=== PATIENT | male | born 1965 | race Caucasian/White ===

== ENCOUNTER 2017-11-13 10:26 | Day surgery (SDC) | payer OTHER ==
[2017-11-11 10:05] VITALS: BMI 25.9
[2017-11-13] MEDS ORDERED: LACTATED RINGERS 1,000 ML IV ONE (11:33)
[2017-11-13 11:34] VITALS: RESP 16; TEMP 98.3
[2017-11-13] MEDS ORDERED: PROPOFOL 10 MG/ML 20 ML VIAL IV ONE (12:13)
--- NOTE | 2017-11-13 12:44 | P.PCN ---
Date of Procedure: 11/13/17 Procedure(s) Performed: Procedure: Total colonoscopy Preoperative diagnosis: Screening for neoplasia. Postoperative diagnosis: Exam within normal limits. Preparation: HalfLytely prep. Sedation: Was provided by anesthesia. Brief clinical history: The patient is a 51-year-old male who is scheduled for this evaluation for screening for neoplasia age being his risk factor. There is no family history of colon cancer. His mother had polyps. The patient has no change in his bowels bleeding or anemia. This would be his first colonoscopy. Procedure: With the patient on his left lateral decubitus position and after informed consent and adequate sedation, the perianal area was inspected and it did not show any fissures or fistulas. There were no masses felt on digital rectal examination. The Olympus CFQ 160L video colonoscope was then inserted in the rectum in the usual fashion and advanced to the cecum. The mucosa appeared healthy. There were no polyps, tumors or obvious diverticular disease. I retroflexed the endoscope in the rectum before the endoscope was withdrawn. The patient tolerated the procedure well. Plan: The patient was reassured. He will follow up with you as planned and I recommended repeat exam in 10 years for screening for colon cancer.
[2017-11-13 12:54] VITALS: BP 132/77; PULSE 80
== END 2017-11-13 13:14 | disposition home or self-care (01) ==
LOC: ORWHC2ENDO 10:26
DX: Z12.11 Encounter for screening for malignant neoplasm of colon (principal); Z83.71 Family history of colonic polyps; I10 Essential (primary) hypertension; F17.210 Nicotine dependence, cigarettes, uncomplicated; Z79.899 Other long term (current) drug therapy
CPT/HCPCS: J2704; G0105

== ENCOUNTER → 2018-04-21 | Outpatient (CLI) | payer OTHER ==
--- NOTE | 2018-04-22 07:55 | CT ---
EXAMINATION TYPE: CT sinus wo con DATE OF EXAM: 04/21/2018 COMPARISON: NONE HISTORY: Chronic recurrent sinusitis per order. Congestion for weeks per patient. CT DLP: 474 mGycm. Automated Exposure Control for Dose Reduction was Utilized. TECHNIQUE: CT scan of the sinuses is performed without contrast, axial images are obtained, coronal r eformatted images are also reviewed. FINDINGS: Mild mucosal thickening is seen anterior inferior aspect of left maxillary sinus. There is focal mild to moderate mucosal thickening anteriorly in both sphenoid sinuses. Mild mucosal thickenin g is seen in the ethmoid sinuses bilaterally is prominent anteriorly. There is hypoplastic or nonform ed right frontal sinus. Small caliber left frontal sinus is clear. No suspicious opacification or air -fluid levels is present. The ostiomeatal complex is blocked on the left and narrowed on the right by antral mucosal thickening. Nasal septum is slightly deviated to right of midline. Visualized portion of mastoid air cells show no abnormal opacification. The globes are intact bilate rally. IMPRESSION: Chronic paranasal sinus disease as detailed above. No acute sinusitis noted currently.
== END | disposition home or self-care (01) ==
LOC: RADCTMAIN 16:06
PROVIDERS: ATTEND Family Medicine
DX: J32.9 Chronic sinusitis, unspecified (principal)
CPT/HCPCS: 70486

== ENCOUNTER 2018-09-07 06:43 | Emergency (ER) | payer OTHER ==
[2018-09-07 06:55] VITALS: BP 156/90; PULSE 117; RESP 22; TEMP 98.1
[2018-09-07] MEDS ORDERED: SODIUM CHLORIDE 0.9% 1,000 ML IV STA (07:10)
--- NOTE | 2018-09-07 07:12 | ED ---
Abdominal Pain HPI - General Chief Complaint: Abdominal Pain Stated Complaint: Kidney Infection Time Seen by Provider: 09/07/18 06:59 Source: patient, RN notes reviewed Mode of arrival: ambulatory Limitations: no limitations - History of Present Illness Initial Comments: 52-year-old male presents emergency Department chief complaint of right-sided abdominal pain, right flank pain. Patient just started on has progressively worsened. Patient believes is related to a kidney infection. Patient states he was taken some old penicillin because he thought this was an infection. Patient denies any fevers or chills patient had slight nausea no vomiting no diarrhea no constipation. Denies any chest pain or shortness of breath. Patient states nothing makes the pain feel better or worse. Patient has NO KNOWN DRUG ALLERGIES. Patient denies any prior abdominal surgeries or history of diverticulitis. - Related Data Home Medications Medication Instructions Recorded Confirmed No Known Home Medications 09/07/18 09/07/18 Allergies Allergy/AdvReac Type Severity Reaction Status Date / Time No Known Allergies Allergy Verified 09/07/18 07:11 Review of Systems ROS Statement: Those systems with pertinent positive or pertinent negative responses have been documented in the HPI. ROS Other: All systems not noted in ROS Statement are negative. Past Medical History Past Medical History: Hypertension Additional Past Medical History / Comment(s): back pain History of Any Multi-Drug Resistant Organisms: None Reported Past Surgical History: No Surgical Hx Reported Past Anesthesia/Blood Transfusion Reactions: No Reported Reaction Past Psychological History: No Psychological Hx Reported Smoking Status: Current every day smoker Past Alcohol Use History: None Reported, Rare Past Drug Use History: None Reported - Past Family History Mother Family Medical History: No Reported History General Exam Limitations: no limitations General appearance: alert, in no apparent distress Head exam: Present: atraumatic, normocephalic, normal inspection Neck exam: Present: normal inspection. Absent: tenderness, meningismus, lymphadenopathy Respiratory exam: Present: normal lung sounds bilaterally. Absent: respiratory distress, wheezes, rales, rhonchi, stridor Cardiovascular Exam: Present: normal rhythm, tachycardia (Patient is tachycardic but very anxious), normal heart sounds. Absent: systolic murmur, diastolic murmur, rubs, gallop, clicks GI/Abdominal exam: Present: soft, tenderness (Mild to moderate right-sided), n ormal bowel sounds. Absent: distended, guarding, rebound, rigid Back exam: Present: CVA tenderness (R). Absent: CVA tenderness (L) Neurological exam: Present: alert, oriented X3, CN II-XII intact Skin exam: Present: warm, dry, intact, normal color. Absent: rash Course Vital Signs 09/07/18 06:53 Temperature 98.1 F Pulse Rate 117 H Respiratory 22 Rate Blood Pressure 156/90 O2 Sat by Pulse 99 Oximetry Medical Decision Making - Medical Decision Making 52-year-old male presents emergency department for chief complaint abdominal pain. Patient felt that he had a kidney infection. Patient did have lab oratory, CT and urinalysis. Urinalysis and labs are unremarkable. CT shows evidence of stool burden and some chronic inflammation related to colitis. I do not feel this is a bacterial infection nature. Patient does have prior colonoscopy which was negative for acute processes. Patient will be discharged to follow-up with GI return parameters were discussed. - Lab Data Result diagrams: 09/07/18 07:26 09/07/18 07:26 Lab Results 09/07/18 09/07/18 09/07/18 Range/Units 07:26 07:26 07:26 WBC 5.8 (3.8-10.6) k/uL RBC 5.12 (4.30-5.90) m/uL Hgb 16.3 (13.0-17.5) gm/dL Hct 47.9 (39.0-53.0) % MCV 93.5 (80.0-100.0) fL MCH 31.8 (25.0-35.0) pg MCHC 34.1 (31.0-37.0) g/dL RDW 14.5 (11.5-15.5) % Plt Count 179 (150-450) k/uL Neutrophils % 71 % Lymphocytes % 16 % Monocytes % 10 % Eosinophils % 1 % Basophils % 1 % Neutrophils # 4.1 (1.3-7.7) k/uL Lymphocytes # 0.9 L (1.0-4.8) k/uL Monocytes # 0.6 (0-1.0) k/uL Eosinophils # 0.1 (0-0.7) k/uL Basophils # 0.0 (0-0.2) k/uL Sodium 141 (137-145) mmol/L Potassium 3.7 (3.5-5.1) mmol/L Chloride 103 (98-107) mmol/L Carbon Dioxide 26 (22-30) mmol/L Anion Gap 12 mmol/L BUN 14 (9-20) mg/dL Creatinine 0.82 (0.66-1.25) mg/dL Est GFR (CKD-EPI)AfAm >90 (>60 ml/min/1.73 sqM) Est GFR (CKD-EPI)NonAf >90 (>60 ml/min/1.73 sqM) Glucose 102 H (74-99) mg/dL Plasma Lactic Acid Yg 1.6 (0.7-2.0) mmol/L Calcium 9.1 (8.4-10.2) mg/dL Total Bilirubin 0.5 (0.2-1.3) mg/dL AST 23 (17-59) U/L ALT 24 (21-72) U/L Alkaline Phosphatase 52 (38-126) U/L Total Protein 7.2 (6.3-8.2) g/dL Albumin 4.2 (3.5-5.0) g/dL Lipase 66 (23-300) U/L Urine Color Urine Appearance (Clear) Urine pH (5.0-8.0) Ur Specific Sterling (1.001-1.035) Urine Protein (Negative) Urine Glucose (UA) (Negative) Urine Ketones (Negative) Urine Blood (Negative) Urine Nitrite (Negative) Urine Bilirubin (Negative) Urine Urobilinogen (<2.0) mg/dL Ur Leukocyte Esterase (Negative) 09/07/18 Range/Units 07:26 WBC (3.8-10.6) k/uL RBC (4.30-5.90) m/uL Hgb (13.0-17.5) gm/dL Hct (39.0-53.0) % MCV (80.0-100.0) fL MCH (25.0-35.0) pg MCHC (31.0-37.0) g/dL RDW (11.5-15.5) % Plt Count (150-450) k/uL Neutrophils % % Lymphocytes % % Monocytes % % Eosinophils % % Basophils % % Neutrophils # (1.3-7.7) k/uL Lymphocytes # (1.0-4.8) k/uL Monocytes # (0-1.0) k/uL Eosinophils # (0-0.7) k/uL Basophils # (0-0.2) k/uL Sodium (137-145) mmol/L Potassium (3.5-5.1) mmol/L Chloride (98-107) mmol/L Carbon Dioxide (22-30) mmol/L Anion Gap mmol/L BUN (9-20) mg/dL Creatinine (0.66-1.25) mg/dL Est GFR (CKD-EPI)AfAm (>60 ml/min/1.73 sqM) Est GFR (CKD-EPI)NonAf (>60 ml/min/1.73 sqM) Glucose (74-99) mg/dL Plasma Lactic Acid Yg (0.7-2.0) mmol/L Calcium (8.4-10.2) mg/dL Total Bilirubin (0.2-1.3) mg/dL AST (17-59) U/L ALT (21-72) U/L Alkaline Phosphatase (38-126) U/L Total Protein (6.3-8.2) g/dL Albumin (3.5-5.0) g/dL Lipase (23-300) U/L Urine Color Light Yellow Urine Appearance Clear (Clear) Urine pH 6.0 (5.0-8.0) Ur Specific Sterling 1.004 (1.001-1.035) Urine Protein Negative (Negative) Urine Glucose (UA) Negative (Negative) Urine Ketones Negative (Negative) Urine Blood Negative (Negative) Urine Nitrite Negative (Negative) Urine Bilirubin Negative (Negative) Urine Urobilinogen <2.0 (<2.0) mg/dL Ur Leukocyte Esterase Negative (Negative) Disposition Clinical Impression: Colitis Disposition: HOME SELF-CARE Condition: Stable Instructions (If sedation given, give patient instructions): Colitis (ED) Additional Instructions: Please return to the Emergency Department if symptoms worsen or any other concerns. Is patient prescribed a controlled substance at d/c from ED?: No Referrals: Ophelia Neff MD [Primary Care Provider] - 1-2 days Shaheen Crane MD [STAFF PHYSICIAN] - 1-2 days Time of Disposition: 10:21
[2018-09-07 07:44] LABS: Appearance,Urine Clear (Clear); Basophils % (A) 1 %; Bilirubin,Urine Negative (Negative); Blood,Urine Negative (Negative); Color,Urine Light Yellow; Eosinophils # (A) 0.1 k/uL (0-0.7); Eosinophils % (A) 1 %; Glucose,Urine (UA) Negative (Negative); HCT 47.9 % (39.0-53.0); HGB 16.3 gm/dL (13.0-17.5); Ketones,Urine Negative (Negative); Leukocyte Esterase,Urine Negative (Negative); Lymphocytes # (A) 0.9 k/uL (1.0-4.8); Lymphocytes % (A) 16 %; MCH 31.8 pg (25.0-35.0); MCHC 34.1 g/dL (31.0-37.0); MCV 93.5 fL (80.0-100.0); Mean Platelet Volume 7.7; Monocytes # (A) 0.6 k/uL (0-1.0); Monocytes % (A) 10 %; Neutrophils # (A) 4.1 k/uL (1.3-7.7); Neutrophils % (A) 71 %; Nitrite,Urine Negative (Negative); Platelet Count 179 k/uL (150-450); Protein,Urine Negative (Negative); RBC 5.12 m/uL (4.30-5.90); RDW 14.5 % (11.5-15.5); Specific Gravity,Urine 1.004 (1.001-1.035); Urobilinogen,Urine <2.0 mg/dL (<2.0); WBC 5.8 k/uL (3.8-10.6)
[2018-09-07 07:53] LABS: ALT 24 U/L (21-72); AST 23 U/L (17-59); African American GFR (CKD) >90 (>60 ml/min/1.73 sqM); Albumin 4.2 g/dL (3.5-5.0); Alkaline Phosphatase 52 U/L (38-126); Anion Gap 12 mmol/L; Blood Urea Nitrogen 14 mg/dL (9-20); Calcium 9.1 mg/dL (8.4-10.2); Carbon Dioxide 26 mmol/L (22-30); Chloride 103 mmol/L (98-107); Glucose 102 mg/dL (74-99); Potassium 3.7 mmol/L (3.5-5.1); Sodium 141 mmol/L (137-145); Total Bilirubin 0.5 mg/dL (0.2-1.3); Total Protein 7.2 g/dL (6.3-8.2)
--- NOTE | 2018-09-07 08:30 | CT ---
EXAMINATION TYPE: CT abdomen pelvis w con DATE OF EXAM: 09/07/2018 COMPARISON: NONE HISTORY: 52-year-old male Kidney infection TECHNIQUE: Contiguous axial scanning of the abdomen and pelvis following administration of 100 ml Iso sammie 300 IV contrast. Delayed images through the kidneys and coronal/sagittal reconstructions perform ed. CT DLP: 707.7 mGycm Automated exposure control for dose reduction was used. FINDINGS: Heart normal size without pericardial effusion. Lung bases clear without pleural effusion. No focal liver lesion or biliary ductal dilatation. Portal venous system is patent. Gallbladder, adrenal glands and right kidney, spleen, and pancreas appear within normal limits. A couple subcentimeter hypodensities within the left kidney too small for accurate CT characterizatio n, likely tiny cysts. There is symmetric uptake and excretion of contrast from both kidneys. Prominent fluid-filled small bowel loops in the mid and lower abdomen and pelvis. Some liquid stool a lso seen within the cecum. Normal appendix. Some prominent small bowel loops in the pelvis measure up to 2.3 cm. No mesenteric or retroperitoneal lymphadenopathy. Scattered mild stool. There is mild to moderate circumferential wall thickening at the level of the hepatic flexure, for ex ample, referred to axial image 27 and 31 and coronal image 19 and 24. Bladder is urine distended. Central prosthetic calcifications. No abnormal fluid collection in the pe lvis or pelvic lymphadenopathy. Bones: Mild degenerative spurring at the hips and SI joints. Mild multilevel degenerative disc diseas e throughout the lumbar spine. IMPRESSION: 1. PROMINENT FLUID-FILLED SMALL BOWEL LOOPS IN THE MID AND LOWER ABDOMEN AND PELVIS AND SOME LIQUID S TOOL IN THE CECUM. ADDITIONAL MILD TO MODERATE CIRCUMFERENTIAL WALL THICKENING AT THE LEVEL OF THE HE PATIC FLEXURE OF THE COLON. CORRELATE FOR ENTEROCOLITIS. 2. A COUPLE TINY HYPODENSE LESIONS IN THE LEFT KIDNEY LIKELY REPRESENT BENIGN CYSTS. NO SPECIFIC CT F INDINGS OF PYELONEPHRITIS AT THIS TIME.
== END 2018-09-07 10:56 | disposition home or self-care (01) ==
LOC: EC 06:43
DX: K52.9 Noninfective gastroenteritis and colitis, unspecified (principal); F17.200 Nicotine dependence, unspecified, uncomplicated
CPT/HCPCS: 36415; 80053; 83605; 83690; 85025; 81003; 74177; 99284; 96360; 96361 ×3; Q9967

== ENCOUNTER → 2021-03-30 | Outpatient (CLI) | payer OTHER ==
[2021-03-30 19:44] LABS: African American GFR (CKD) 114.5 (60.0-200.0); Anion Gap 11.4 mmol/L (10.00-18.00); Blood Urea Nitrogen 11.6 mg/dL (9.0-27.0); Carbon Dioxide 24.3 mmol/L (20.0-27.5); Non-African American GFR(CKD) 98.8 (60.0-200.0); Potassium 3.9 mmol/L (3.5-5.5)
== END | disposition home or self-care (01) ==
LOC: LABWHC1 13:26
PROVIDERS: ATTEND Family Medicine
DX: I10 Essential (primary) hypertension (principal); R73.03 Prediabetes
CPT/HCPCS: 36415; 80051; 82565; 83036; 84443; 84520

== ENCOUNTER 2021-12-03 12:03 | Day surgery (SDC) | payer OTHER ==
[~2021-12-03 12:03] MED LIST: LACTATED RINGERS 1,000 ML IV SCH
[2021-12-03 12:19] VITALS: TEMP 98
[2021-12-03] MEDS ORDERED: LACTATED RINGERS 1,000 ML IV ONE (12:21)
[2021-12-03] MEDS ORDERED: LIDOCAINE 2% INJ 20 MG/ML (2 ML VIAL) ONE (14:08)
[2021-12-03] MEDS ORDERED: PROPOFOL 10 MG/ML 20 ML VIAL IV ONE (14:08)
--- NOTE | 2021-12-03 14:12 | P.GSHP ---
History of Present Illness H&P Date: 12/03/21 Chief Complaint: Rectal bleeding, family history: Cancer This is a 55-year-old male presents today for colonoscopy. Patient has had some intermittent rectal bleeding. He thinks is from hemorrhoids. Patient also has a strong family history of colon cancer with his mother having colon cancer Past Medical History Past Medical History: GERD/Reflux, Hypertension Additional Past Medical History / Comment(s): back pain, hemorrhoids, occasional heartburn History of Any Multi-Drug Resistant Organisms: None Reported Past Surgical History: No Surgical Hx Reported Additional Past Surgical History / Comment(s): colonoscopy Past Anesthesia/Blood Transfusion Reactions: No Reported Reaction Smoking Status: Former smoker, Vaper - Past Family History Mother Family Medical History: No Reported History Father Additional Family Medical History / Comment(s): on blood thinner irregular heart beat Medications and Allergies Home Medications Medication Instructions Recorded Confirmed Type Aspirin 81 mg PO DAILY 11/30/21 11/30/21 History Multivit-Min/FA/Lycopen/Lutein 1 each PO DAILY 11/30/21 11/30/21 History [Centrum Silver Men Tablet] Omeprazole 20 mg PO DAILY PRN 11/30/21 11/30/21 History lisinopriL [Zestril] 10 mg PO DAILY 11/30/21 11/30/21 History Allergies Allergy/AdvReac Type Severity Reaction Status Date / Time No Known Allergies Allergy Verified 11/30/21 09:50 Surgical - Exam Vital Signs Temp Pulse Resp BP Pulse Ox 98 F 109 H 18 127/78 97 12/03/21 12:17 12/03/21 12:17 12/03/21 12:17 12/03/21 12:17 12/03/21 12:17 - General well developed, well nourished, no distress - Eyes PERRL - ENT normal pinna - Neck no masses - Respiratory normal expansion - Cardiovascular Rhythm: regular - Abdomen Abdomen: soft, non tender Assessment and Plan Assessment: Family history of colon cancer, rectal bleeding. We'll perform colonoscopy
--- NOTE | 2021-12-03 14:30 | P.OP ---
Date of Procedure: 12/03/21 Preoperative Diagnosis: GI bleed Postoperative Diagnosis: Diverticulosis Mild internal hemorrhoids Procedure(s) Performed: Colonoscopy Anesthesia: MAC Surgeon: El Elder Pathology: none sent Condition: stable Disposition: PACU Description of Procedure: The patient's placed on the endoscopy table in the lateral position. Seed IV sedation. Digital rectal exam was performed. This revealed minimal internal hemorrhoids. Flexible colonoscope was then placed patient anus and passed throughout the entire colon. The ileocecal valve was visualized. The cecum, ascending and transverse colon appeared normal. In the descending; was a few diverticula seen. The scope was then brought back the rectum this appeared normal. Scope withdrawn the anus and minimal internal hemorrhoids are noted. The There is no evidence of any GI bleed. Presumed patient may have had rectal bleeding from hemorrhoids.
[2021-12-03 14:50] VITALS: BP 98/49; PULSE 88; RESP 18
== END 2021-12-03 15:15 | disposition home or self-care (01) ==
LOC: ORWHC2ENDO 12:03
PROVIDERS: ATTEND Surgery
DX: K57.30 Diverticulosis of large intestine without perforation or abscess without bleeding (principal); K64.8 Other hemorrhoids; K21.9 Gastro-esophageal reflux disease without esophagitis; I10 Essential (primary) hypertension; M54.9 Dorsalgia, unspecified; Z87.891 Personal history of nicotine dependence; Z82.49 Family history of ischemic heart disease and other diseases of the circulatory system; Z79.82 Long term (current) use of aspirin; Z79.899 Other long term (current) drug therapy; Z79.1 Long term (current) use of non-steroidal anti-inflammatories (NSAID)
CPT/HCPCS: 45378; J2704; J2001

== ENCOUNTER → 2023-07-04 | Outpatient (CLI) | payer OTHER ==
--- NOTE | 2023-07-05 15:14 | CTL ---
EXAMINATION TYPE: CT Low Dose Lung DATE OF EXAM: 07/04/2023 11:25 AM CLINICAL INDICATION:Male, 57 years old with history of Z12.2 ENCNTR SCREEN FOR MALIGNANT NEOPLASM OF RESP; personal hx of nicotine dependence 1 ppd X 30 years not current smoker , history of tobacco us e. COMPARISON: None. TECHNIQUE: Multiple axial non-contrast scans were obtained from approximately the lung apices through the upper abdomen. Coronal and sagittal reformatted images were obtained. Low dose technique was uti lized. CT DLP: 120.2 mGycm, Automated exposure control for dose reduction was used. CT Contrast: Contrast used: None Oral contrast used: None FINDINGS: ======== Lack of intravenous contrast and low dose technique limits the evaluation of the vascular and soft ti ssue structures. LUNGS: No evidence of pulmonary fibrosis. No evidence of focal consolidation, pneumothorax or pleural effusion. Centrilobular emphysema changes. Nodules: RUL: None. RML: None. RLL: None. PAULINE: None. LLL: None. AIRWAY: Patent and unremarkable. HEART: Size within normal limits. MEDIASTINUM: No gross evidence of adenopathy. VASCULATURE: No aortic aneurysm. MUSCULOSKELETAL: Mild disc degeneration changes are present throughout the thoracolumbar spine. SOFT TISSUES/LYMPH NODES: Unremarkable. LOWER NECK: No significant findings. UPPER ABDOMEN: No significant findings. IMPRESSION: 1. No clinically significant pulmonary nodules. 2. Mild emphysema. CT LUNG RAD AND CT CHEST RECOMMENDATION: Lung-Rad 1 Negative: Continue annual screening with LDCT in 12 months. S Modifier (other clinically significant findings): None Recommend smoking cessation (if current smoker), or continuation of smoking cessation (if prior smoke r). Annual screening for lung cancer with low-dose computed tomography is recommended in adults ages 55 to 77 years who have a 30 pack-year smoking history and currently smoke or have quit within the pa st 15 years. Screening should be discontinued once a person has not smoked for 15 years or develops a health problem that substantially limits life expectancy or the ability or willingness to have curat sudhakar lung surgery. Lung rads 2021 [email or web address]
== END | disposition home or self-care (01) ==
LOC: RADCTMAIN 09:42
PROVIDERS: ATTEND Family Medicine
DX: Z12.2 Encounter for screening for malignant neoplasm of respiratory organs (principal); J43.2 Centrilobular emphysema; Z87.891 Personal history of nicotine dependence
CPT/HCPCS: 71271

== ENCOUNTER 2024-07-27 19:04 | Inpatient (IN) | payer OTHER ==
[2024-07-27 20:23] LABS: Glucose,Whole Blood 101 mg/dL (70-110)
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
[2024-07-27 20:42] LABS: Basophils # (A) 0.04 10*3/uL (0.00-0.10); Basophils % (A) 0.3 %; Eosinophils # (A) 0.07 10*3/uL (0.04-0.35); Eosinophils % (A) 0.5 %; HCT 43.6 % (39.6-50.0); HGB 15.4 g/dL (13.0-17.0); Lymphocytes # (A) 1.62 10*3/uL (0.90-5.00); Lymphocytes % (A) 12.7 %; MCH 32.4 pg (27.0-32.0); MCHC 35.3 g/dL (32.0-37.0); MCV 91.6 fL (80.0-97.0); Mean Platelet Volume 10.5 fL (9.5-12.2); Monocytes # (A) 0.84 10*3/uL (0.20-1.00); Monocytes % (A) 6.6 %; Neutrophils # (A) 10.13 10*3/uL (1.80-7.70); Neutrophils % (A) 79.4 %; RBC 4.76 10*6/uL (4.40-5.60); RDW 11.9 % (11.5-14.5); WBC 12.76 10*3/uL (4.50-10.00)
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
[2024-07-27] MEDS: SODIUM CHLORIDE 0.9% 1,000 ML IV STA (20:46)
[2024-07-27] MEDS: ONDANSETRON 4 MG/2 ML VIAL IVP STA (20:46)
[2024-07-27] MEDS: HYDROmorphone 1 MG/ML 1 ML SYRINGE IVP STA (20:46)
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
[2024-07-27 21:01] LABS: ALT 22 U/L (4-49); AST 33 U/L (17-59); African American GFR (CKD) >90 (>60 ml/min/1.73 sqM); Albumin 4.7 g/dL (3.5-5.0); Alcohol <10 mg/dL; Alkaline Phosphatase 82 U/L (38-126); Anion Gap 10 mmol/L; Blood Urea Nitrogen 19 mg/dL (9-20); Calcium 9.6 mg/dL (8.4-10.2); Carbon Dioxide 24 mmol/L (22-30); Chloride 102 mmol/L (98-107); Glucose 99 mg/dL (74-99); Non-African American GFR(CKD) >90 (>60 ml/min/1.73 sqM); Potassium 4.1 mmol/L (3.5-5.1); Sodium 136 mmol/L (137-145); Total Bilirubin 0.5 mg/dL (0.2-1.3); Total Protein 7.5 g/dL (6.3-8.2)
[2024-07-27] MEDS: DIPH,PERTUS(ACELL)TETVAC-LF 0.5 ML VIAL IM ONE (21:04)
[2024-07-27] MEDS: ACET/COD 300 MG/30 MG STARTER PACK 6 TAB BTL PO STA (21:07)
[2024-07-27] MEDS: KETOROLAC 15 MG/ML 1 ML VIAL IVP STA (21:08)
[2024-07-27] MEDS: ONDANSETRON 4 MG ODT STARTER PACK 2 TAB BTL PO STA (21:08)
[2024-07-27] MEDS: traMADol 50 MG STARTER PACK 3 TAB BTL PO STA (21:08)
[2024-07-27 21:33] LABS: Platelet Count 111 10*3/uL (140-440)
[2024-07-27] MEDS ORDERED: HYDROmorphone 1 MG/ML 1 ML SYRINGE IVP PRN (21:38)
[2024-07-27] MEDS ORDERED: NALOXONE 0.4 MG/ML 1 ML VIAL IV PRN (21:38)
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
[2024-07-27] MEDS: SODIUM CHLORIDE 0.9% 1,000 ML IV SCH (22:24)
[2024-07-28 00:08] LABS: Amphetamine Screen,Urine Not Detected (NotDetected); Barbiturate Screen,Urine Not Detected (NotDetected); Benzodiazepines Screen,Urine Detected (NotDetected); Cocaine Screen,Urine Not Detected (NotDetected); Methadone Screen, Urine Not Detected (NotDetected); Opiate Screen,Urine Detected (NotDetected); Oxycodone Screen, Urine Not Detected (NotDetected); Phencyclidine Screen,Urine Not Detected (NotDetected); Tricyclic Antidepressant,Urine Not Detected (NotDetected); Urn Cannabinoid Scrn Not Detected (NotDetected)
[2024-07-28 00:16] LABS: Partial Thromboplastin Time 23.6 sec (22.0-30.0); Prothrombin Time 11.5 sec (10.0-12.5)
[2024-07-28 04:55] LABS: Basophils # (A) 0.02 10*3/uL (0.00-0.10); Basophils % (A) 0.3 %; Eosinophils # (A) 0.06 10*3/uL (0.04-0.35); Eosinophils % (A) 0.9 %; HCT 38.2 % (39.6-50.0); HGB 13.4 g/dL (13.0-17.0); Lymphocytes # (A) 1.56 10*3/uL (0.90-5.00); Lymphocytes % (A) 23.6 %; MCH 32.8 pg (27.0-32.0); MCHC 35.1 g/dL (32.0-37.0); MCV 93.6 fL (80.0-97.0); Mean Platelet Volume 10.5 fL (9.5-12.2); Monocytes % (A) 12.1 %; Neutrophils # (A) 4.17 10*3/uL (1.80-7.70); Neutrophils % (A) 62.9 %; RBC 4.08 10*6/uL (4.40-5.60); RDW 12.2 % (11.5-14.5); WBC 6.62 10*3/uL (4.50-10.00)
[2024-07-28 05:02] LABS: Platelet Count 179 10*3/uL (140-440)
[2024-07-28 05:10] LABS: ALT 18 U/L (4-49); AST 29 U/L (17-59); African American GFR (CKD) >90 (>60 ml/min/1.73 sqM); Albumin 3.5 g/dL (3.5-5.0); Alkaline Phosphatase 60 U/L (38-126); Anion Gap 5 mmol/L; Blood Urea Nitrogen 18 mg/dL (9-20); Calcium 8.7 mg/dL (8.4-10.2); Carbon Dioxide 28 mmol/L (22-30); Chloride 101 mmol/L (98-107); Glucose 103 mg/dL (74-99); Magnesium 1.8 mg/dL (1.6-2.3); Non-African American GFR(CKD) >90 (>60 ml/min/1.73 sqM); Phosphorus 3.3 mg/dL (2.5-4.5); Potassium 4.3 mmol/L (3.5-5.1); Sodium 134 mmol/L (137-145); Total Bilirubin 0.7 mg/dL (0.2-1.3); Total Protein 5.8 g/dL (6.3-8.2)
[2024-07-28] MEDS: HEPARIN SODIUM,PORCINE 5,000 UNIT/ML 1 ML VIAL SQ SCH (07:47)
[2024-07-28] MEDS: KETOROLAC 15 MG/ML 1 ML VIAL IVP PRN (08:33)
[2024-07-28] MEDS: METOPROLOL TARTRATE 25 MG TAB PO SCH (09:19)
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
--- NOTE | 2024-07-29 05:36 | HP ---
HISTORY AND PHYSICAL HISTORY: A 58-year-old white male, admitted with atypical chest pain, transferred from [facility]. He was having chest pain walking with his outside. He has been noncompliant with his medication, etc. He came into the hospital, and the ER ordered a CAT scan of his chest, abdomen, and pelvis and admitted for rule-out [place]. Cardiology saw him already at Dr. Doss' office. He had chest discomfort. He came to the hospital. EKG shows no ischemia. Cardiology was not going to do stress test or heart catheterization and watched him for 24 hours and sent him home. He had elevated troponin. Most recent echo 40-45% with tricuspid regurg. He is scheduled for [facility] to see him for possible heart evaluation. REVIEW OF SYSTEMS: A 14-point review of systems is otherwise negative. PHYSICAL EXAM: VITAL SIGNS: Stable. Afebrile. CARDIOVASCULAR: S1, S2. LUNGS: Decreased breath sounds x4. No rhonchi or wheeze. GI: Soft. HEMATOLOGY: Negative Homans. PSYCH: Fair mood and affect. HEENT: Pupils equal, round, and reactive. ASSESSMENT: Atypical chest pain, chronically elevated troponins, stabilization for non-STEMI, history of coronary artery disease with evaluation at [facility], dyslipidemia, diabetes mellitus, right below-knee amputation, ischemic cardiomyopathy, hypertension, chronic obstructive pulmonary disease, and peripheral arterial disease. PLAN: Heparin for 24 hours. Resume cardiac medicines. Breathing treatments. Possible discharge to home if Cardiology clears tomorrow. MMODL / IJN: [id number] /
[2024-07-29 07:43] VITALS: RESP 18
[2024-07-29] MEDS: MULTIVITAMINS, THERA 1 EACH TAB PO SCH (08:39)
[2024-07-29] MEDS: PANTOPRAZOLE 40 MG TABLET PO SCH (08:39)
[2024-07-29] MEDS: MONTELUKAST 10 MG TAB PO SCH (08:47)
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
[2024-07-29 13:28] VITALS: TEMP 98.2
[2024-07-29 18:52] VITALS: BP 143/83; PULSE 60
== END 2024-07-29 18:40 | disposition home or self-care (01) | DRG 309 ==
LOC: EC 19:04 → 6NMEDSUR 21:39 → OBSVTOIN 21:40 → 6NMEDSUR 23:31
PROVIDERS: ADMIT Family Medicine; ATTEND Family Medicine
DX: I47.20 Ventricular tachycardia, unspecified (principal); S26.91XA Contusion of heart, unspecified with or without hemopericardium, initial encounter; S09.90XA Unspecified injury of head, initial encounter; E11.51 Type 2 diabetes mellitus with diabetic peripheral angiopathy without gangrene; I10 Essential (primary) hypertension; I07.1 Rheumatic tricuspid insufficiency; Z89.511 Acquired absence of right leg below knee; R07.89 Other chest pain; I25.5 Ischemic cardiomyopathy; S20.219A Contusion of unspecified front wall of thorax, initial encounter; S40.012A Contusion of left shoulder, initial encounter; S40.212A Abrasion of left shoulder, initial encounter; I49.3 Ventricular premature depolarization; E78.5 Hyperlipidemia, unspecified; Z79.899 Other long term (current) drug therapy; Z79.82 Long term (current) use of aspirin; V23.49XA Other motorcycle driver injured in collision with car, pick-up truck or van in traffic accident, initial encounter; Y92.410 Unspecified street and highway as the place of occurrence of the external cause; Z87.891 Personal history of nicotine dependence; Z91.148 Patient's other noncompliance with medication regimen for other reason; R79.89 Other specified abnormal findings of blood chemistry
CPT/HCPCS: 36415; 70450; 71045; 71260; 72125; 72170; 74177; 80053; 80306; 80320; 83605; 83735; 84100; 84484; 85025; 85610; 85730; 86850; 86900; 86901; 90471; 90715; 93005; 93306; 96361; 96372; 96374; 96375; 96376; 99291